=== PATIENT | female | born 1955 | race Caucasian/White ===

== ENCOUNTER 2021-05-28 10:16 | Outpatient (CLI) | payer OTHER | END 2021-05-28 10:17 | disposition home or self-care (01) | LOC: CSHMAMMO 10:16 | PROVIDERS: ATTEND Internal Medicine | DX: Z12.31 Encounter for screening mammogram for malignant neoplasm of breast (principal); M81.0 Age-related osteoporosis without current pathological fracture; M85.89 Other specified disorders of bone density and structure, multiple sites; Z91.89 Other specified personal risk factors, not elsewhere classified; Z98.82 Breast implant status | CPT/HCPCS: 77063; 77067; 77080 ==

== ENCOUNTER 2022-10-01 12:29 | Outpatient (CLI) | payer OTHER | END 2022-10-01 12:30 | disposition home or self-care (01) | LOC: CSHMAMMO 12:29 | PROVIDERS: ATTEND Internal Medicine | DX: Z12.31 Encounter for screening mammogram for malignant neoplasm of breast (principal); Z91.89 Other specified personal risk factors, not elsewhere classified; Z98.82 Breast implant status | CPT/HCPCS: 77063; 77067 ==

== ENCOUNTER 2023-11-28 12:57 | Outpatient (CLI) | payer OTHER, MEDICARE | END 2023-11-28 12:58 | disposition home or self-care (01) | LOC: CSHMAMMO 12:57 | PROVIDERS: ATTEND Internal Medicine | DX: Z12.31 Encounter for screening mammogram for malignant neoplasm of breast (principal); Z91.89 Other specified personal risk factors, not elsewhere classified; Z98.82 Breast implant status | CPT/HCPCS: 77063; 77067 ==

== ENCOUNTER 2025-01-10 12:35 | Outpatient (CLI) | payer OTHER | END 2025-01-10 12:36 | disposition home or self-care (01) | LOC: CSHMAMMO 12:35 | PROVIDERS: ATTEND Internal Medicine | DX: Z12.31 Encounter for screening mammogram for malignant neoplasm of breast (principal); Z98.2 Presence of cerebrospinal fluid drainage device | CPT/HCPCS: 77063; 77067 ==